=== PATIENT | female | born 1950 | race Two or more races ===

== ENCOUNTER → 2017-01-16 | Outpatient (CLI) | payer OTHER | LOC: BRMIMAGING 07:40 | DX: Z12.31 Encounter for screening mammogram for malignant neoplasm of breast (principal) | CPT/HCPCS: G0202 ==

== ENCOUNTER → 2017-02-02 | Outpatient (CLI) | payer OTHER | LOC: CIMAGING 16:55 | PROVIDERS: ATTEND Family Medicine | DX: M19.041 Primary osteoarthritis, right hand (principal); M19.042 Primary osteoarthritis, left hand | CPT/HCPCS: 73120-PO ==

== ENCOUNTER 2017-08-27 05:42 | Day surgery (SDC) | payer OTHER ==
--- NOTE | 2017-08-26 12:24 | GHP ---
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 Since then, she has had no evidence of metastasis or recurrent disease. She recently h ad a CT scan with her oncologist, Dr. Tati Steen, in June 2017, which showed an anterior abdomina l wall fatigue-containing hernia, and a small hiatal hernia. She also had a stable right lung nodule measuring 18 x 12 mm that had been seen on PET-CT as metabolically active, but subsequently shown to be benign with biopsy. She had no evidence of metastases nor adenopathy in the abdomen. Today, the patient says she has abdominal pain, especially when sitting, mostly in her epigastric are a. She says she can feel a protrusion that does go away when she lies down. She denies any heart tr oubles, lung troubles, diabetes, but she does admit to having asthma, for which she does not take any drugs. 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 PAST SURGICAL HISTORY: Bilateral salpingo-oophorectomy, bladder surgery, bladder suspension, bunione ctomy, , colonoscopy, hysterectomy. MEDICATIONS: Include Leana, Flovent, Maxzide, ProAir, Protonix. ALLERGIES: Include Cipro, quinolones, and sulfa. FAMILY MEDICAL HISTORY: Includes asthma, stroke, diabetes, hypertension, gastric cancer. SOCIAL HISTORY: The patient has 4 children. She does not drink alcohol. She exercises regularly. She is . She does not smoke. REVIEW OF SYSTEMS: A 10-point review of systems is negative, aside from the HPI. PHYSICAL EXAMINATION: GENERAL: A well-groomed, pleasant, nontoxic-appearing 67-year-old female. HE ENT: Normocephalic, atraumatic. Pupils equal and round and anicteric. CHEST: Clear to auscultatio n bilaterally. CARDIAC: Regular rate and rhythm. ABDOMEN: Palpable, medium-size, soft, tender, re ducible incisional hernia. No distention, no tenderness, no rigidity, no guarding. EXTREMITIES: Wa rm, well perfused. NEUROLOGIC: Grossly intact. PSYCHIATRIC: Mood and affect normal. SKIN: Warm and dry. IMPRESSION: This is a 67-year-old female with a ventral incisional hernia without obstruction or patrick grene. PLAN: The plan is to proceed with an open ventral hernia repair with mesh. Risks and options have b brooklynn discussed including, but not limited to, bleeding, infection, injury to nerve, bowel injury, recu rrent hernia, damage to surrounding structures, and other problems, and she requests to proceed. /[id number]/MODL
[2017-08-27] MEDS ORDERED: ceFAZolin 2 GM/SWFI 2 GM/20 ML SYR IVP ONE (06:04)
[2017-08-27] MEDS ORDERED: BUPIVACAINE 0.5% 30 ML SDV ONE (06:05)
[2017-08-27] MEDS ORDERED: LR 1,000 ML IV ONE (06:05)
[2017-08-27] MEDS ORDERED: LIDOCAINE 1% 2 ML INJ ID PRN (06:05)
[2017-08-27 06:45] VITALS: PULSE 73
--- NOTE | 2017-08-27 06:47 | PDHPUP ---
History & Physical Update H&P update statement: This history and physical update is based on an assessment of the patient which was completed after admission or registration (within 24 hours), but prior to the surgery/procedure. updated 08/27
--- NOTE | 2017-08-27 07:09 | PDANEPAE ---
ANE Past Medical History - Cardiovascular History Hx Hypertension: No Hx Arrhythmias: No Hx Chest Pain: No Hx Coronary Artery / Peripheral Vascular Disease: No Hx CHF / Valvular Disease: No Hx Palpitations: No Cardiovascular History Comment: TAKES TRIAMTERENE/HCTZ NEEDED FOR FLUID RETENTION - Pulmonary History Hx COPD: No Hx Asthma/Reactive Airway Disease: Yes Hx Recent Upper Respiratory Infection: No Hx Oxygen in Use at Home: No Hx Sleep Apnea: No Sleep Apnea Screening Result - Last Documented: Negative Pulmonary History Comment: ALBUTEROL INHALER. SEASONAL ALLERGIES - Neurologic History Hx Cerebrovascular Accident: No Hx Seizures: No Hx Dementia: No - Endocrine History Hx Diabetes: No - Renal History Hx Renal Disorders: No Renal History Comment: BLADDER MASS - Liver History Hx Hepatic Disorders: No - Neurological & Psychiatric Hx Hx Neurological and Psychiatric Disorders: No - Cancer History Hx Cancer: Yes Cancer History Comment: BASAL CELL. ABDOMINAL MASS. OVARIAN CA - Congenital Disorder History Hx Congenital Disorders: No - GI History Hx Gastrointestinal Disorders: Yes Gastrointestinal History Comment: ACID REFLUX - Other Health History Other Health History: ASTHMA. BLADDER SURGERY AND BILAT OVARIES REMOVED, HYSTERECTOMY - Chronic Pain History Chronic Pain: No - Surgical History Prior Surgeries: C SECTION X2. BLADDER LIFT. BUNIONECTOMY X2. HYSTERECTOMY. HUGH SALPINGO-OOPHERECTOMY & ABD MASS 2016 ANE Review of Systems Review of Systems: - Exercise capacity METS (RN): 4 METS ANE Patient History - Allergies Allergies/Adverse Reactions: ciprofloxacin [From Cipro] Allergy (Severe, Verified 08/28/16 16:18) Other-Enter Comments ciprofloxacin HCl [From Cipro] Allergy (Severe, Verified 08/28/16 16:18) Other-Enter Comments Sulfa (Sulfonamide Antibiotics) Allergy (Unknown, Verified 08/27/17 06:12) SEASONAL Allergy (Mild, Uncoded 08/28/16 16:18) Other-Enter Comments - Home Medications Home Medications: Triamterene-Hctz 75-50 mg Tab PO DAILY PRN 08/28/16 [Last Taken 08/20/17] Proair Hfa 08/27/17 [Last Taken 07/28/17] - NPO status NPO Since - Liquids (Date): 08/26/17 NPO Since - Liquids (Time): 20:00 NPO Since - Solids (Date): 08/26/17 NPO Since - Solids (Time): 17:00 - Smoking Hx Smoking Status: Former smoker - Family Anes Hx Family Hx Anesthesia Complications: NEG ANE Labs/Vital Signs - Vital Signs Blood Pressure: 104/65 Heart Rate: 73 Respiratory Rate: 16 O2 Sat (%): 93 Height: 159.39 cm Weight: 83.915 kg ANE Physical Exam - Airway Mallampati Score: Class 3 - ASA Status ASA Status: II ANE Anesthesia Plan Anesthesia Plan: general endotracheal anesthesia
[2017-08-27] MEDS ORDERED: fentaNYL 100 MCG/2 ML INJ ONE ×2 (07:15→09:40)
[2017-08-27] MEDS ORDERED: ONDANSETRON 4 MG/2 ML VIAL ONE (07:15)
[2017-08-27] MEDS ORDERED: MIDAZOLAM 2 MG/2 ML VIAL ONE (07:16)
[2017-08-27] MEDS ORDERED: PROPOFOL 200 MG/20 ML VIAL ONE (07:16)
[2017-08-27] MEDS ORDERED: METOCLOPRAMIDE 10 MG/2 ML VIAL ONE (07:20)
[2017-08-27] MEDS ORDERED: ROCURONIUM 50 MG/5 ML VIAL ONE (08:14)
[2017-08-27] MEDS ORDERED: SUGAMMADEX SODIUM 200 MG/2 ML VIAL IVP ONE (08:14)
[2017-08-27] MEDS ORDERED: ALBUTEROL 3 ML DEYVIAL IH PRN (08:46)
[2017-08-27] MEDS ORDERED: NALOXONE HCL 0.4 MG/ML INJ IVP PRN (08:46)
[2017-08-27] MEDS ORDERED: PROMETHAZINE HCL 25 MG/ML INJ IVP PRN (08:46)
[2017-08-27] MEDS ORDERED: fentaNYL 100 MCG/2 ML INJ IVP PRN (08:46)
--- NOTE | 2017-08-27 08:47 | POSTANESTH ---
Post Anesthetic Evaluation Cardiovascular Status: Normal, Stable Respiratory Status: Normal, Stable Level of Consciousness/Mental Status: Can Participate in Eval Pain Control: Adequate, Prn Tx Ordered Nausea/Vomiting Control: Adequate, Prn Tx Ordered Complications Possibly Related to Anesthesia: None Noted
--- NOTE | 2017-08-27 08:49 | POSTOPPROG ---
Post Op Note Date of Operation: 08/27/17 Surgeon: Gagandeep Oh Storage Specialist: yoselyn Haider Anesthesiologist: Dr Verdin Anesthesia: GET(General Endotracheal) Pre-op Diagnosis: ventral hernia Post-op Diagnosis: same Indication: pain Procedure: open ventral hernia repair Findings: med sized hernia Inf/Abcess present in the surg proc area at time of surgery?: No Depth: Organ Space EBL: Minimal
[2017-08-27 09:23] VITALS: TEMP 97.9
[2017-08-27 10:45] VITALS: BP 105/61; RESP 17; O2SAT 96
--- NOTE | 2017-08-28 04:53 | GOP ---
[f rep st] OPERATIVE REPORT DATE OF OPERATION: 08/27/2017 SURGEON: Gagandeep Oh MD QUILLER MACHINE FIXER: SHANTI Vaughn ANESTHESIOLOGIST: Corky Verdin MD PREOPERATIVE DIAGNOSIS: Symptomatic ventral incisional hernia. POSTOPERATIVE DIAGNOSIS: Symptomatic ventral incisional hernia. PROCEDURE PERFORMED: Ventral hernia repair with mesh. FINDINGS: The patient was found to have a 3 cm ventral hernia defect containing some small bowel. ESTIMATED BLOOD LOSS: Negligible. DESCRIPTION OF PROCEDURE: The patient was brought to the operating room where she received satisfact ory general endotracheal anesthesia by Dr. Verdin and was placed in the supine position. She was pre pped and draped in the usual sterile fashion and a vertical incision was made through the previous ol d scar. Dissection was carried down through the subcutaneous tissue. The hernia sac was identified, dissected free from surrounding subcutaneous tissue, and the sac was opened at the fascial level wit h its contents reduced. A subfascial space was created and a piece of a Prolene mesh was placed in t he subfascial space and anchored around the periphery with interrupted 0 Ethibond mattress sutures. The mesh was a good 2 inches beyond the fascial defect edges. The defect itself was then closed dire ctly with interrupted 0 Ethibond [id number] sutures. The wound was infiltrated with 0.5% Marcai ne and subcu was closed with 2-0 Vicryl suture and the skin with a 4-0 Monocryl subcuticular stitch. She tolerated the procedure well and was taken to the recovery room in good condition. COMPLICATIONS: None. /[id number]/MODL
== END 2017-08-27 10:55 | disposition home or self-care (01) ==
LOC: FSGY 05:42
PROVIDERS: ATTEND Surgery
PROC: 0WUF0JZ Supplement Abdominal Wall with Synthetic Substitute, Open Approach (ICD-10-PCS; principal; 2017-08-27 07:15)
DX: K43.2 Incisional hernia without obstruction or gangrene (principal); K21.9 Gastro-esophageal reflux disease without esophagitis; Z85.43 Personal history of malignant neoplasm of ovary; J45.909 Unspecified asthma, uncomplicated
CPT/HCPCS: C1781; J0690; J2250; J2405; J2704; J2765; J3010

== ENCOUNTER → 2017-09-23 | Outpatient (CLI) | payer OTHER | LOC: FIMAGING 08:57 | PROVIDERS: ATTEND Family Medicine | DX: Z13.820 Encounter for screening for osteoporosis (principal); M85.80 Other specified disorders of bone density and structure, unspecified site; E55.9 Vitamin D deficiency, unspecified; E78.5 Hyperlipidemia, unspecified ==

== ENCOUNTER → 2017-11-23 | Outpatient (CLI) | payer OTHER | LOC: CIMAGING 10:24 | PROVIDERS: ATTEND Family Medicine | DX: M77.31 Calcaneal spur, right foot (principal); M20.61 Acquired deformities of toe(s), unspecified, right foot; Z87.81 Personal history of (healed) traumatic fracture | CPT/HCPCS: 73610-PO; 73630-PO ==

== ENCOUNTER → 2018-04-16 | Outpatient (CLI) | payer OTHER | LOC: BRMIMAGING 14:10 | PROVIDERS: ATTEND Family Medicine | DX: Z12.31 Encounter for screening mammogram for malignant neoplasm of breast (principal) ==

== ENCOUNTER 2018-10-18 17:09 | Emergency (ER) | payer OTHER ==
[2018-10-18] MEDS ORDERED: IBUPROFEN 800 MG TAB PO ONE (17:37)
[2018-10-18] MEDS ORDERED: ACETAMINOPHEN 500 MG TAB PO ONE (17:37)
--- NOTE | 2018-10-18 17:41 | EDPHY ---
H & P Time Seen by Provider: 10/18/18 17:38 HPI/ROS: HPI CHIEF COMPLAINT: Mechanical trip and fall slip on snow and ice right ankle right knee pain. HISTORY OF PRESENT ILLNESS: 68-year-old female, denies any significant medical history, does not take any daily medications, states she was getting out of her car and slipped and fell. Landing on her right ankle inversion mechanism. Complains of right ankle lateral pain, and right knee pain. Denies any other areas of discomfort. She presents emergency room with right lateral ankle discomfort and swelling. Current level pain 6/10. Past Medical History: Denies significant medical history Past Surgical History: Denies significant surgical history Social History: Denies drugs alcohol tobacco. Family History: Noncontributory ROS REVIEW OF SYSTEMS: 10 Systems were reviewed and negative with the exception of the elements mentioned in the history of present illness. Exam Constitutional triage nursing summary reviewed, vital signs reviewed, awake/ alert. Eyes normal conjunctivae and sclera, EOMI, PERRLA. HENT normal inspection, atraumatic, moist mucus membranes, no epistaxis, neck supple/ no meningismus, no raccoon eyes. Respiratory clear to auscultation bilaterally, normal breath sounds, no respiratory distress, no wheezing. Cardiovascular rate normal, regular rhythm, no murmur, no edema, distal pulses normal. Gastrointestinal soft, non-tender, no rebound, no guarding, normal bowel sounds, no distension, no pulsatile mass. Genitourinary no CVA tenderness. Musculoskeletal right lower extremity: Neurovascular intact with good distal pulse, good cap refill, swelling noted over the right lateral malleolus. Closed injury. Good distal pulse, good cap refill, no foot tenderness, additionally some ecchymosis over the anterior right knee without any significant swelling. She has full range of motion of the right knee. No crepitus. Mild tender palpation over the right lateral joint line. Able to fully range her ankle, right knee, hip. Complains of worsening right lateral ankle pain, right lateral knee pain. No signs of compartment syndrome. Good sensation distally and good sensation intact. no midline vertebral tenderness, full range of motion, no calf swelling, no tenderness of extremities, no meningismus, good pulses, neurovascularly intact. Skin pink, warm, & dry, no rash, skin atraumatic. Neurologic awake, alert and oriented x 3, AAOx3, moves all 4 extremities equally, motor intact, sensory intact, CN II-XII intact, normal cerebellar, normal vision, normal speech. Psychiatric normal mood/affect. Heme/Lymph/Immune no lymphadenopathy. Differential Diagnosis: Includes but is not limited to in a particular order right ankle sprain, right ankle contusion, fracture, knee sprain, knee contusion , patella fracture, ligamentous injury, meniscal injury, ankle fracture Medical Decision Making: Plan for this patient x-ray right ankle, right knee, right femur, Tylenol Motrin will be given for pain, ice pack, and re-evaluate Re-evaluation: X-rays reviewed of the right femur negative for acute fracture X-ray reviewed of the right knee negative for acute fracture but arthritic changes appreciated X-ray reviewed of the right ankle shows a distal fibula fracture all read by Radiology Dr. Ahn Plan for this patient given her right ankle fracture should be splinted posterior short leg and stirrup. Patient need to follow up with Orthopedics Plan for this patient posterior short-leg splint and stir. Crutches. Patient need orthopedic referral which I will provide Patient placed in a posterior short-leg with stirrup and this is appropriate. Neurovascular intact post splint placement. Good cap refill, patient feels comfortable in a splint. No compartment syndrome. Return precautions discussed with patient return if worsening pain numbness or tingling blue discussion toes compartment syndrome precautions discussed with the patient. She is comfortable and understands. Source: Patient, Family - Medical/Surgical History Hx Asthma: Yes Hx Chronic Respiratory Disease: No Hx Diabetes: No Hx Cardiac Disease: No Hx Renal Disease: No Hx Cirrhosis: No Hx Alcoholism: No Hx HIV/AIDS: No Hx Splenectomy or Spleen Trauma: No Other PMH: HYSTERECTOMY,TONSILS,BUNION - Social History Smoking Status: Former smoker Constitutional: Initial Vital Signs Temperature (C) 36.9 C 10/18/18 17:34 Heart Rate 95 10/18/18 17:34 Respiratory Rate 16 10/18/18 17:34 Blood Pressure 125/70 H 10/18/18 17:34 O2 Sat (%) 95 10/18/18 17:34 O2 Delivery Mode Room Air Allergies/Adverse Reactions: ciprofloxacin [From Cipro] Allergy (Severe, Verified 10/18/18 17:33) Other-Enter Comments ciprofloxacin HCl [From Cipro] Allergy (Severe, Verified 10/18/18 17:33) Other-Enter Comments Sulfa (Sulfonamide Antibiotics) Allergy (Unknown, Verified 10/18/18 17:33) SEASONAL Allergy (Mild, Uncoded 10/18/18 17:33) Other-Enter Comments Home Medications: Medication Instructions Recorded Triamterene-Hctz 75-50 mg Tab PO DAILY PRN 08/28/16 Proair Hfa 08/27/17 Medical Decision Making - Diagnostics Imaging Results: Imaging Impressions Ankle X-Ray 10/18/18 17:11 Impression: Nondisplaced fracture of the distal right fibula at and below the ankle joint level (Gibbons B injury). Femur X-Ray 10/18/18 17:38 Impression: 1. Negative radiographs of the proximal right femur. Knee X-Ray 10/18/18 17:38 Impression: Right knee degenerative changes, most severe within the patellofemoral compartment. - Data Points Medications Given: Discontinued Medications Acetaminophen (Tylenol) 1,000 mg PO EDNOW ONE Stop: 10/18/18 17:38 Last Admin: 10/18/18 17:56 Dose: 1,000 mg Ibuprofen (Motrin) 800 mg PO EDNOW ONE Stop: 10/18/18 17:38 Last Admin: 10/18/18 17:57 Dose: 800 mg Departure - Departure Disposition: Home, Routine, Self-Care Clinical Impression: Ankle sprain, Contusion, knee, Ankle fracture Condition: Good Instructions: Ankle Fracture (ED), Ankle Sprain (ED), Knee Pain (ED) Additional Instructions: 1. Recommend alternating Tylenol and Motrin every 6-8 hours for pain control 2. Recommend ice. 3. Elevation. 4. Follow up with Orthopedics. 5. You have a ankle fracture. You will need to follow up with Orthopedics. Referrals: Casey Coreas DO [Primary Care Provider] - As per Instructions Eduardo Monroy MD [Medical Doctor] - As per Instructions
[2018-10-18 19:40] VITALS: BP 111/70
== END 2018-10-18 20:37 | disposition home or self-care (01) ==
LOC: CED 17:09
PROC: 2W3QX1Z Immobilization of Right Lower Leg using Splint (ICD-10-PCS; principal; 2018-10-18)
DX: S82.831A Other fracture of upper and lower end of right fibula, initial encounter for closed fracture (principal); S80.01XA Contusion of right knee, initial encounter; W01.0XXA Fall on same level from slipping, tripping and stumbling without subsequent striking against object, initial encounter; Y92.810 Car as the place of occurrence of the external cause; Y99.8 Other external cause status; Y93.9 Activity, unspecified
CPT/HCPCS: 73551-PO; 73564-PO; 73610-PO; 99283-ER

== ENCOUNTER → 2018-12-10 | Outpatient (CLI) | payer OTHER | LOC: FIMAGING 08:56 | PROVIDERS: ATTEND Family Medicine | DX: R92.8 Other abnormal and inconclusive findings on diagnostic imaging of breast (principal) ==